=== PATIENT | female | born 1980 | race Hispanic/Latino ===

== ENCOUNTER 2025-03-07 22:29 | Emergency (ER) | payer MEDICAID, OTHER ==
[~2025-03-07 22:29] MED LIST: Iopamidol-370 76% 500 ML MDV (1 ML CHARGE) ONE
[2025-03-07] MEDS ORDERED: Acetaminophen 500 MG TAB ONE (23:14)
[2025-03-07] MEDS ORDERED: Ondansetron PF 4 MG/2 ML Vial ONE (23:14)
[2025-03-07 23:50] LABS: #Basophils 0.03 10x3/uL (0.0-0.2); #Eosinophils 0.17 10x3/uL (0.0-0.7); #Monocytes 0.46 10x3/uL (0.11-0.59); #Neutrophils 4.55 10x3/uL (1.40-6.50); %Basophils 0.4 % (0.0-1.0); %Eosinophils 2.3 % (0.0-10.0); %Lymphocytes 30.7 % (21.0-51.0); %Monocytes 6.1 % (0.0-10.0); %Neutrophils 60.2 % (42.0-75.0); Hematocrit 27.4 % (36.0-47.0); Hemoglobin 7.8 g/dL (12.0-16.0); Mean Corpuscular Hemoglobin 20.6 pg (27.0-31.0); Mean Corpuscular Volume 72.5 fL (78.0-98.0); Platelet Count 371 10x3/uL (130-400); Red Blood Cell (RBC) Count 3.78 mill/uL (4.20-5.40); White Blood Cell (WBC) Count 7.55 10x3/uL (4.8-10.8)
[2025-03-07 23:59] LABS: ALT (SGPT) 10 U/L (Less than 34); AST (SGOT) 24 U/L (11-34); Albumin 3.8 g/dL (3.1-4.5); Alkaline Phosphatase 75 U/L (40-110); Anion Gap 13 mmol/L (10-20); BUN (Urea Nitrogen) 21 mg/dL (7.0-18.7); Bilirubin, Total 0.2 mg/dL (0.3-1.2); Calc. Creatinine Clearance 0 mL/min (70-130); Calcium 9.0 mg/dL (7.8-10.44); Carbon Dioxide 25 mmol/L (22-29); Chloride 105 mmol/L (98-107); Globulin 3.5 g/dL (2.4-3.5); Glucose 92 mg/dL (70-105); Lipase 26 U/L (8-78); Potassium 3.8 mmol/L (3.5-5.1); Sodium 139 mmol/L (136-145)
[2025-03-08 00:12] LABS: Microcytosis SLIGHT = 6-15 cells HPF (0-5); Platelet Adequacy Comment Platelets Normal; Polychromasia SLIGHT = 2-3 cells HPF (0-2); Target Cells SLIGHT = 2-5 cells HPF (0-1)
[2025-03-08 00:14] LABS: Bacteria/HPF None Seen HPF (None Seen); CAUTI Indications for Culture < 2yrs of age; Glucose, Urine (Dipstick) Normal (Negative); Leukocyte Negative Leu/uL (Negative); Protein, Urine (Dipstick) Negative (Neg-Trace); RBC/HPF 0-3 HPF (0-3); Specific Gravity, Urine 1.029 (1.002-1.036); WBC/HPF None Seen HPF (0-3)
[2025-03-08 00:16] LABS: Urine Culture Reflex Yes Yes
[2025-03-08 00:17] LABS: Pregnancy Test - Urine (BHCG) Negative (Negative); Pregu Control Background? CLEAR/WHITE (CLR/WHITE); Pregu Control Bar Appear? YES (CONTROL BAR)
== END 2025-03-08 01:56 | disposition home or self-care (01) ==
LOC: ERS 22:29
DX: D25.9 Leiomyoma of uterus, unspecified (principal); D64.9 Anemia, unspecified
CPT/HCPCS: 74177; 80053; 81001; 81025; 83690; 85025; 87086; 96374; J2405; Q9967

== ENCOUNTER 2025-03-15 02:48 | Emergency (ER) | payer MEDICAID ==
[2025-03-15 03:59] LABS: ALT (SGPT) 9 U/L (Less than 34); AST (SGOT) 17 U/L (11-34); Albumin 3.5 g/dL (3.1-4.5); Alkaline Phosphatase 64 U/L (40-110); Anion Gap 14 mmol/L (10-20); BUN (Urea Nitrogen) 10 mg/dL (7.0-18.7); Bilirubin, Total 0.2 mg/dL (0.3-1.2); Calc. Creatinine Clearance 0 mL/min (70-130); Calcium 8.8 mg/dL (7.8-10.44); Carbon Dioxide 23 mmol/L (22-29); Chloride 106 mmol/L (98-107); Globulin 2.9 g/dL (2.4-3.5); Glucose 100 mg/dL (70-105); Potassium 3.9 mmol/L (3.5-5.1); Sodium 139 mmol/L (136-145)
[2025-03-15 04:08] LABS: #Basophils 0.03 10x3/uL (0.0-0.2); #Eosinophils 0.18 10x3/uL (0.0-0.7); #Monocytes 0.48 10x3/uL (0.11-0.59); #Neutrophils 5.10 10x3/uL (1.40-6.50); %Basophils 0.4 % (0.0-1.0); %Eosinophils 2.2 % (0.0-10.0); %Lymphocytes 28.0 % (21.0-51.0); %Monocytes 5.9 % (0.0-10.0); %Neutrophils 63.3 % (42.0-75.0); Hematocrit 25.1 % (36.0-47.0); Hemoglobin 7.3 g/dL (12.0-16.0); Mean Corpuscular Hemoglobin 20.5 pg (27.0-31.0); Mean Corpuscular Volume 70.5 fL (78.0-98.0); Platelet Count 276 10x3/uL (130-400); Red Blood Cell (RBC) Count 3.56 mill/uL (4.20-5.40); White Blood Cell (WBC) Count 8.07 10x3/uL (4.8-10.8)
[2025-03-15] MEDS ORDERED: Famotidine/PF 20 mg/2ml Vial ONE (04:41)
[2025-03-15] MEDS ORDERED: Pantoprazole 40 MG VIAL ONE (04:41)
[2025-03-15 04:50] LABS: Anisocytosis MODERATE=16-30 cells HPF (0-5); Macrocytosis SLIGHT = 6-15 cells HPF (0-5); Platelet Adequacy Comment Platelets Normal; Polychromasia SLIGHT = 2-3 cells HPF (0-2); Smudge Cells 1.0 %
[2025-03-15] MEDS ORDERED: Mag-Al 1200 mg/1200 mg/30 ML UDCUP ONE (05:02)
== END 2025-03-15 05:31 | disposition home or self-care (01) ==
LOC: ERS 02:48
DX: R06.00 Dyspnea, unspecified (principal); D64.9 Anemia, unspecified; R13.10 Dysphagia, unspecified
CPT/HCPCS: 71045; 80053; 84484; 85025; 93005; 96374; 96375; J1308; J2470